=== PATIENT | female | born 1965 | race Two or more races ===

== ENCOUNTER 2016-12-04 19:55 | Emergency (ER) | payer MEDICAID, OTHER | END 2016-12-05 08:50 | disposition left against medical advice (07) | LOC: ER 20:11 | DX: R10.9 Unspecified abdominal pain (principal); Z53.21 Procedure and treatment not carried out due to patient leaving prior to being seen by health care provider ==

== ENCOUNTER 2017-07-27 19:55 | Inpatient (IN) | payer MEDICAID ==
[~2017-07-27] VITALS: Ht 165.1 cm; Wt 54.0 kg
[2017-07-27] MEDS ORDERED: SODIUM CHLORIDE 0.9% 1,000 ML IV ONE (21:00)
[2017-07-27 21:12] LABS: Albumin 1.9 g/dL (3.4-5.0); Amylase 23 U/L (25-115); Anion Gap 9 (5-15); Aspartate Aminotransferase 11 U/L (15-37); Blood Urea Nitrogen 9 mg/dL (7-18); Calcium 8.3 mg/dL (8.5-10.1); Carbon Dioxide 27 mmol/L (21-32); Chloride 100 mmol/L (98-107); GFR African American 166 mL/min; GFR Non-African American 137 mL/min; Glucose 84 mg/dL (74-106); Hemoglobin 9.4 g/dL (12.2-16.2); Magnesium 1.7 mg/dL (1.6-2.6); Mean Corpuscular Hgb Conc. 32.4 g/dL (32.0-36.0); Mean Corpuscular Volume 89.7 fL (80.0-100.0); Mean Platelet Volume 6.7 fL (6.9-10.8); Platelet Count (auto) 412 10^3/uL (140-450); Red Cell Distribution Width 17.6 % (11.8-14.3); Sodium 136 mmol/L (136-145); White Blood Cell 9.8 10^3/uL (4.4-10.8)
[2017-07-27] MEDS ORDERED: ONDANSETRON HCL 4 MG/2 ML VIAL IV ONE (21:15)
[2017-07-27] MEDS ORDERED: HYDROmorphone HCL 2 MG/ML VL IV ONE (21:15)
[2017-07-27 21:18] LABS: Metamyelocytes % 0; Myelocytes % 0; Promyelocytes % 0; Reactive Lymphocytes 0
[2017-07-27 21:20] LABS: Alkaline Phosphatase 99 U/L (45-117); Bilirubin, Total 0.2 mg/dL (0.2-1.0); Total Protein 7.1 g/dL (6.4-8.2)
[2017-07-27 21:47] LABS: INR 1.1 (0.9-1.15); Partial Thromboplastin Time 35.7 sec (22.64-33.71)
[2017-07-27 21:50] LABS: Anisocytosis Slight; Hypochromia Slight; Platelet Estimate Adequate
[2017-07-27 22:11] LABS: Potassium 2.9 mmol/L (3.5-5.1)
[2017-07-27] MEDS: POTASSIUM CHL 20MEQ/100ML 100 ML IV SCH (23:16)
[2017-07-28] MEDS ORDERED: HYDROmorphone HCL 2 MG/ML VL IV ONE (00:15)
[2017-07-28] MEDS: POTASSIUM CHL 20MEQ/100ML 100 ML IV SCH (01:05)
[2017-07-28] MEDS ORDERED: cefTRIAXone 1GM/50ML D5W 50 ML IV ONE (02:00)
[2017-07-28] MEDS ORDERED: metroNIDAZOLE 500MG/100ML 100 ML IV ONE (02:00)
[2017-07-28] MEDS ORDERED: FOLI1TAB6 PO (02:45)
[2017-07-28] MEDS ORDERED: GABA-494 PO (02:45)
[2017-07-28] MEDS ORDERED: SULF500T8 PO (02:45)
[2017-07-28] MEDS ORDERED: FOLIC ACID 1 MG TAB PO ONE (04:00)
[2017-07-28] MEDS ORDERED: TEMAZEPAM 15 MG CAP PO PRN (04:00)
[2017-07-28] MEDS ORDERED: LOPERAMIDE HCL 2 MG CAP PO PRN (04:00)
[2017-07-28] MEDS ORDERED: MORPHINE SULF INJ 2 MG/ML SYRINGE 1ML IV PRN (04:00)
[2017-07-28] MEDS ORDERED: ONDANSETRON HCL 4 MG/2 ML VIAL IV PRN (04:00)
[2017-07-28] MEDS ORDERED: ACETAMINOPHEN 325 MG TAB PO PRN (04:00)
[2017-07-28] MEDS: SODIUM CHLORIDE 0.9% 1,000 ML IV SCH (04:00)
[2017-07-28] MEDS: metroNIDAZOLE 500MG/100ML 100 ML IV SCH ×3 (06:12→23:00)
[2017-07-28] MEDS: SULFASALAZINE 500 MG TAB PO SCH ×4 (07:05→21:51)
[2017-07-28 09:02] VITALS: BP 81/47
[2017-07-28] MEDS: GABAPENTIN 100 MG CAP PO SCH (10:19)
[2017-07-28] MEDS: PANTOPRAZOLE 40 MG/10 ML VIAL IV SCH (10:19)
[2017-07-28] MEDS: ENOXAPARIN SOD 40 MG/0.4 ML SYRINGE SC SCH (10:19)
[2017-07-28 11:40] VITALS: BP 91/57
[2017-07-28 12:02] VITALS: BP 91/57
[2017-07-28 12:27] VITALS: BP 90/51
[2017-07-28] MEDS: predniSONE 20 MG TAB PO SCH (15:29)
[2017-07-28 15:51] LABS: Urine Bilirubin Negative (Negative); Urine Blood Negative /uL (Negative); Urine Color Yellow (Yellow); Urine Glucose Normal (Normal); Urine Ketone 2+ (Negative); Urine Nitrite Negative (Negative); Urine RBC <1 /hpf (0 - 4); Urine Squamous Epithelial Cell FEW /hpf (<5); Urine Urobilinogen Normal (Negative)
[2017-07-28 16:13] VITALS: BP 91/51
[2017-07-28] MEDS ORDERED: cefTRIAXone 1GM/50ML D5W 50 ML IV SCH (22:00)
[2017-07-28 22:46] VITALS: BP 98/57
[2017-07-29 05:37] VITALS: BP 109/52
[2017-07-29] MEDS: SULFASALAZINE 500 MG TAB PO SCH ×2 (05:49→12:25)
[2017-07-29] MEDS: metroNIDAZOLE 500MG/100ML 100 ML IV SCH ×2 (05:50→13:36)
[2017-07-29 06:16] LABS: Basophils # (auto) 0 uL; Basophils % (auto) 0.1 % (0.0-2.0); Eosinophils # (auto) 0 uL; Hematocrit 33.2 % (36.0-46.0); Hemoglobin 10.1 g/dL (12.2-16.2); Lymphocytes # (auto) 0.8 uL; Lymphocytes % (auto) 12.9 % (10.0-50.0); Mean Corpuscular Hemoglobin 28.9 pg (28.0-32.0); Mean Corpuscular Hgb Conc. 30.4 g/dL (32.0-36.0); Mean Corpuscular Volume 94.9 fL (80.0-100.0); Mean Platelet Volume 6.5 fL (6.9-10.8); Monocytes # (auto) 0.6 uL; Monocytes % (auto) 10.1 % (0.0-12.0); Neutrophils # (auto) 4.7 uL; Neutrophils % (auto) 76.9 % (37.0-80.0); Nucleated Red Blood Cells % 0.1 %; Platelet Count (auto) 389 10^3/uL (140-450); Red Cell Distribution Width 17.5 % (11.8-14.3); White Blood Cell 6.1 10^3/uL (4.4-10.8)
[2017-07-29 06:49] LABS: Albumin 1.6 g/dL (3.4-5.0); BUN/Creatinine Ratio 18.2; Bilirubin, Total 0.2 mg/dL (0.2-1.0); Calcium 8.1 mg/dL (8.5-10.1); Potassium 3.2 mmol/L (3.5-5.1); Total Protein 6.4 g/dL (6.4-8.2)
[2017-07-29 08:20] VITALS: BP 103/64
[2017-07-29] MEDS: GABAPENTIN 100 MG CAP PO SCH (08:52)
[2017-07-29] MEDS: PANTOPRAZOLE 40 MG/10 ML VIAL IV SCH (08:52)
[2017-07-29] MEDS: predniSONE 20 MG TAB PO SCH (08:52)
[2017-07-29] MEDS: ENOXAPARIN SOD 40 MG/0.4 ML SYRINGE SC SCH (08:53)
[2017-07-29] MEDS ORDERED: POTASSIUM CHL 20 Meq TABLET PO ONE (10:15)
[2017-07-29 12:28] VITALS: BP 96/54
[2017-07-29] MEDS: SODIUM CHLORIDE 0.9% 1,000 ML IV SCH (12:40)
== END 2017-07-29 15:09 | disposition home or self-care (01) | DRG 245 ==
LOC: EDBD 19:55 → ER 20:02 → OVERFLOW 20:03 → EAST 07-28 08:11 → WEST WING 07-28 11:53
PROVIDERS: ADMIT Internal Medicine; ATTEND Internal Medicine
DX: K50.10 Crohn's disease of large intestine without complications (principal); E43 Unspecified severe protein-calorie malnutrition; G47.00 Insomnia, unspecified; E87.6 Hypokalemia; E86.0 Dehydration; Z68.1 Body mass index [BMI] 19.9 or less, adult; Z88.6 Allergy status to analgesic agent; Z79.899 Other long term (current) drug therapy
CPT/HCPCS: 36415; 74176; 80053; 81001; 82150; 83690; 83735; 84484; 85007; 85025; 85027; 85610; 85730; 87045; 87493; 87899; 93005; 96361; 96365; 96367; 96375; C9113; J0696; J2405; J3480; J3490